=== PATIENT | female | born 1975 | race Caucasian/White ===

== ENCOUNTER 2019-06-23 18:57 | Emergency (ER) | payer SELFPAY ==
--- NOTE | 2019-06-23 20:05 | EDM.PDOC ---
ED HPI GENERAL MEDICAL PROBLEM - General Chief Complaint: Lower Extremity Injury/Pain Stated Complaint: FOOT INJURY Time Seen by Provider: 06/23/19 19:38 Source of Information: Reports: Patient, Family ( - came into exam room towards end of evaluation) History Limitations: Reports: No Limitations - History of Present Illness INITIAL COMMENTS - FREE TEXT/NARRATIVE: Mrs. Connolly is a very pleasant 43-year-old woman with no significant past medical history, who states that she developed painful burning to her left foot , felt primarily between the toes, but also to the distal and lateral aspects of her left foot, about one week ago. She also developed a patch of erythema to the anterior aspect of her left ankle, that similarly suárez. The patient thought that she was suffering from athlete's foot, therefore has been applying Lotrimin ointment, and periodically spraying with Tinactin. Her symptoms have not yet improved. The patient states that she works in the kitchen at the [employer], and is on her feet for about 11 hours a day. The patient does not have a PCP. Bilateral Foot Pain Score (Numeric/FACES): 5 - Related Data Allergies Allergy/AdvReac Type Severity Reaction Status Date / Time No Known Allergies Allergy Verified 06/23/19 19:35 Home Meds: Home Meds . [No Known Home Meds] 06/23/19 [History] Past Medical History Endocrine/Metabolic History: Reports: Obesity/BMI 30+ - Past Surgical History HEENT Surgical History: Reports: Oral Surgery (Upper teeth extracted/3 surgeries. [place] teeth extracted.), Tonsillectomy Female Surgical History: Reports: D&C (x 1), Hysterectomy (partial), Tubal Ligation Social & Family History - Tobacco Use Smoking Status *Q: Never Smoker - Caffeine Use Caffeine Use: Reports: Soda - Alcohol Use Alcohol Use History: Yes Alcohol Use Frequency: Rarely - Recreational Drug Use Recreational Drug Use: No - Living Situation & Occupation Living situation: Reports: , with Spouse, with Family (2 kids) Occupation: Employed ([employer]) ED ROS GENERAL - Review of Systems Review Of Systems: ROS reveals no pertinent complaints other than HPI. ED EXAM, SKIN/RASH Exam: See Below Exam Limited By: No Limitations General Appearance: Alert, WD/WN, No Apparent Distress Extremities: Other (On the left foot, there is desquamation noted extending up the lateral aspect of the foot, with erythematous skin distal to the margin. There is desquamation and cracking of the skin between each of the toes of both feet. There is erythema and swelling with desquamation to the dorsal aspect of the left toes, extending to the skin between the toes. There is an additional patch of erythema measuring approximately 5 cm diameter to the anterior aspect of the left ankle. All of these areas are reported as being painful/burning.) Course - Vital Signs Last Recorded V/S: Last Vital Signs Temp 36.6 C 06/23/19 19:37 Pulse 81 06/23/19 19:37 Resp 20 06/23/19 19:37 BP 154/100 H 06/23/19 19:37 Pulse Ox 97 06/23/19 19:37 - Re-Assessments/Exams Free Text/Narrative Re-Assessment/Exam: 06/23/19 20:00 The erythema, dry skin, cracked skin between the toes, and painful burning to the patient's left foot, primarily, appears to be fungal in etiology. The patient appears to be developing a similar condition between the toes of the right foot, as well. I am recommending that she thoroughly wash her feet when she bathes, then dry them with a hair salon manager, not just a towel, before applying a topical antifungal cream or ointment, such as clotrimazole or miconazole, both of which are available [id number], to all affected areas. She will need to apply a second application later in the day. I am recommending that she stop using a topical spray. I advised the patient that fungal infections take a long time to develop, and take a long time to get rid of - she will need to be patient. Departure - Departure Time of Disposition: 20:05 Disposition: Home, Self-Care 01 Condition: Good Clinical Impression: Tinea pedis of both feet - Discharge Information *PRESCRIPTION DRUG MONITORING PROGRAM REVIEWED*: Not Applicable *COPY OF PRESCRIPTION DRUG MONITORING REPORT IN PATIENT INRDA: Not Applicable Instructions: Athlete's Foot, [id number] Referrals: Dominga Dial MD [Physician] - Forms: ED Department Discharge Additional Instructions: You were seen in the emergency room for redness, dry skin, and painful burning primarily to your left foot, with cracked skin between the toes of both feet, for the past week. Based on your history and physical examination, you are most likely suffering from tinea pedis, also known as athletes foot. As discussed, we recommend that you thoroughly wash your feet with soap and water when you bathe, daily. Dry both of your feet thoroughly. We recommend you use a hair salon manager, not just a towel. We recommend that you then apply an antifungal cream or ointment, such as clotrimazole (Lotrimin) or miconazole to all affected areas. You will need to apply a second application later in the day. Since fungus likes dark, warm, moist areas, walking around in bare feet when not at work would be a good thing. As discussed, fungal infections take a long time to develop, and take a long time to get rid of. You will need to be patient. Follow-up with Dr. Dominga Dial, or one of the other providers in the clinic, as needed. If any other problems, please do not hesitate to return to the ER.
== END 2019-06-23 20:21 | disposition home or self-care (01) ==
LOC: JD.ED 18:57
DX: B35.3 Tinea pedis (principal); E66.9 Obesity, unspecified; Z68.41 Body mass index [BMI] 40.0-44.9, adult
CPT/HCPCS: 99283